=== PATIENT | male | born 1935 | race Caucasian/White ===

== ENCOUNTER 2016-11-18 17:25 | Inpatient (IN) | payer MEDICARE, OTHER ==
[2016-11-18] VITALS (10 sets, daily range): BP systolic 116–137; RESP 24–32; TEMP 97–97.1; BMI 31.9
[~2016-11-18] VITALS: Ht 175.3 cm; Wt 99.9 kg
[2016-11-18] MEDS ORDERED: CEFTRIAXONE 1 GM VIAL ONE (20:16)
[2016-11-18] MEDS ORDERED: SODIUM CHLORIDE 0.9% 100 ML IV ONE (20:16)
[2016-11-18] MEDS ORDERED: ALBUMIN HUMAN 25GM (25%) 100 ML IV PRN (20:25)
[2016-11-18] MEDS ORDERED: SODIUM CHLORIDE 0.9% 1,000 ML IV SCH (20:25)
[2016-11-18] MEDS ORDERED: GLUCAGON 1 MG VIAL IM PRN (20:25)
[2016-11-18] MEDS ORDERED: SODIUM CHLORIDE 0.9% 1,000 ML IV PRN (20:25)
[2016-11-18] MEDS ORDERED: ONDANSETRON 4 MG VIAL IV PRN (20:25)
[2016-11-18] MEDS ORDERED: SODIUM BICARB 8.4% 150 ML in DEXTROSE 5% 1,000 ML IV SCH (21:05)
[2016-11-18] MEDS ORDERED: VANCOMYCIN 1,500 MG in SODIUM CHLORIDE 0.9% 250 ML IV ONE (21:10)
[2016-11-18] MEDS ORDERED: ACETAMINOPHEN 325 MG TAB PO PRN (21:10)
[2016-11-18] MEDS ORDERED: ONDANSETRON 4 MG VIAL IV PUSH PRN (21:15)
[2016-11-19] VITALS (53 sets, daily range): BP systolic 66–139; RESP 16–44; TEMP 97.2–98.3
[2016-11-19] MEDS: CEFTRIAXONE 1 GM in SODIUM CHLORIDE 0.9% 50 ML IV SCH (07:29)
[2016-11-19] MEDS ORDERED: ONDANSETRON 4 MG VIAL IV PRN (09:00)
[2016-11-19] MEDS ORDERED: SODIUM CHLORIDE 0.9% 1,000 ML IV PRN (09:00)
[2016-11-19] MEDS ORDERED: SODIUM CHLORIDE 0.9% 1,000 ML IV SCH (09:00)
[2016-11-19] MEDS ORDERED: ALBUMIN HUMAN 25GM (25%) 100 ML IV PRN (09:00)
[2016-11-19] MEDS: BACITRACIN OINT TOPICAL SCH (21:08)
[2016-11-19] MEDS ORDERED: SODIUM CHLORIDE 0.9% 500 ML IV ONE ×2 (22:35→23:25)
[2016-11-19] MEDS: NOREPINEPHRINE 16 MG in DEXTROSE 5% 234 ML IV SCH (23:35)
[2016-11-20] VITALS (106 sets, daily range): BP systolic 64–138; RESP 0–39; TEMP 98.8–101.5
[2016-11-20] MEDS ORDERED: DEXTROSE 50% 50 ML ONE (01:21)
[2016-11-20] MEDS: DEXTROSE 50% SYRINGE 50 ML IV PRN (01:25)
[2016-11-20] MEDS ORDERED: ALBUMIN HUMAN 25GM (25%) 100 ML IV ONE ×3 (01:55→19:35)
[2016-11-20] MEDS ORDERED: DEXTROSE 50% SYRINGE 50 ML IV STA (07:02)
[2016-11-20] MEDS ORDERED: DEXTROSE 50% SYRINGE 50 ML IV PRN (07:05)
[2016-11-20] MEDS ORDERED: MISSING DOSE XX ONE ×3 (07:50→23:50)
[2016-11-20] MEDS: SODIUM BICARB 8.4% 100 ML in DEXTROSE 5% 1,000 ML IV SCH (08:22)
[2016-11-20] MEDS: CEFTRIAXONE 1 GM in SODIUM CHLORIDE 0.9% 50 ML IV SCH (08:27)
[2016-11-20] MEDS ORDERED: VANCOMYCIN 1,000 MG in SODIUM CHLORIDE 0.9% 250 ML IV ONE (11:00)
[2016-11-20] MEDS: BACITRACIN OINT TOPICAL SCH ×2 (11:05→23:55)
[2016-11-20] MEDS: PIPERACIL/TAZO 2.25GM/50ML 50 ML IV SCH ×2 (11:41→20:49)
[2016-11-20] MEDS ORDERED: AMIODARONE 150 MG in DEXTROSE 5% 100 ML IV ONE (19:55)
[2016-11-20] MEDS ORDERED: AMIODARONE 450 MG in DEXTROSE 5% AVIVA 250 ML IV SCH (19:55)
[2016-11-20] MEDS ORDERED: ALBUMIN HUMAN 25GM (25%) 100 ML IV PRN (20:10)
[2016-11-20] MEDS: VASOPRESSIN 40 UNITS in SODIUM CHLORIDE 0.9% 38 ML IV SCH (21:00)
[2016-11-20] MEDS ORDERED: FAMOTIDINE 20 MG/50 ML 50 ML IV SCH (21:00)
[2016-11-20] MEDS: FAMOTIDINE 20 MG INJ IV SCH (23:54)
[2016-11-21] VITALS (117 sets, daily range): BP systolic 53–143; RESP 0–38; TEMP 99.8–100.5
[2016-11-21] MEDS: SODIUM BICARB 8.4% 100 ML in DEXTROSE 5% 1,000 ML IV SCH ×2 (01:06→14:24)
[2016-11-21] MEDS: NOREPINEPHRINE 16 MG in DEXTROSE 5% 234 ML IV SCH ×2 (01:06→19:17)
[2016-11-21] MEDS ORDERED: NEB-BROVANA 15 MCG/2 ML INH ONE ×2 (03:06→03:15)
[2016-11-21] MEDS ORDERED: DUONEB INH ONE (03:15)
[2016-11-21] MEDS: DUONEB INH SCH ×6 (03:24→22:45)
[2016-11-21] MEDS: NEB-BROVANA 15 MCG/2 ML INH SCH ×2 (06:42→18:14)
[2016-11-21] MEDS: PIPERACIL/TAZO 2.25GM/50ML 50 ML IV SCH ×2 (08:09→23:13)
[2016-11-21] MEDS: FAMOTIDINE 20 MG INJ IV SCH ×2 (08:19→23:14)
[2016-11-21] MEDS: BACITRACIN OINT TOPICAL SCH ×2 (08:20→21:00)
[2016-11-21] MEDS ORDERED: VANCOMYCIN 500 MG in SODIUM CHLORIDE 0.9% 100 ML IV SCH (09:00)
[2016-11-21] MEDS ORDERED: MISSING DOSE XX ONE ×3 (12:05→18:45)
[2016-11-21] MEDS: VASOPRESSIN 40 UNITS in SODIUM CHLORIDE 0.9% 38 ML IV SCH (12:28)
[2016-11-21] MEDS ORDERED: ALBUMIN HUMAN 25GM (25%) 100 ML IV ONE ×2 (17:40)
[2016-11-21] MEDS ORDERED: SODIUM CHLORIDE 0.9% 1,000 ML IV ONE ×2 (18:15)
[2016-11-21] MEDS: NEB-NACL 3% 4 ML NEBU INH SCH ×2 (18:53→22:44)
[2016-11-21] MEDS: NEB-BUDESONIDE 0.5 MG INH SCH (18:53)
[2016-11-21] MEDS ORDERED: hePARIN 20,000 UNITS in DEXTROSE 5% 500 ML IV SCH (19:50)
[2016-11-21] MEDS ORDERED: CRASH CART/CODE RESPONSE CHARGE XX ONE (21:20)
[2016-11-22] VITALS (75 sets, daily range): BP systolic 0–134; RESP 0–32; TEMP 97–102; Ht 175.3 cm; Wt 99.9 kg
[2016-11-22] MEDS: DUONEB INH SCH ×4 (02:58→14:36)
[2016-11-22] MEDS ORDERED: MISSING DOSE XX ONE ×2 (03:00→12:55)
[2016-11-22] MEDS ORDERED: hePARIN 1,000 UNITS/ML (PORCINE) 10 ML DIALYSIS PRN (06:15)
[2016-11-22] MEDS: NEB-BROVANA 15 MCG/2 ML INH SCH (06:38)
[2016-11-22] MEDS: NEB-BUDESONIDE 0.5 MG INH SCH (06:38)
[2016-11-22] MEDS: NEB-NACL 3% 4 ML NEBU INH SCH ×2 (06:39→11:00)
[2016-11-22] MEDS ORDERED: DOBUTamine PREMIX 250 ML IV PRN (07:45)
[2016-11-22] MEDS ORDERED: ALBUMIN HUMAN 25GM (25%) 100 ML IV ONE ×2 (07:45)
[2016-11-22] MEDS ORDERED: SOD BICARB 8.4% SYR 50 ML ONE ×3 (08:00→09:11)
[2016-11-22] MEDS ORDERED: PHARMACY TO DOSE TOBRAMYCIN IV SCH (08:00)
[2016-11-22] MEDS ORDERED: MICAFUNGIN 100 MG in SODIUM CHLORIDE 0.9% 100 ML IV SCH (09:00)
[2016-11-22] MEDS: PIPERACIL/TAZO 2.25GM/50ML 50 ML IV SCH (09:00)
[2016-11-22] MEDS: BACITRACIN OINT TOPICAL SCH (09:00)
[2016-11-22] MEDS: SOLU-CORTEF 100 MG/2 ML IV SCH ×2 (09:10→17:21)
[2016-11-22] MEDS ORDERED: SODIUM CHLORIDE 0.9% 1,000 ML IV ONE (09:10)
[2016-11-22] MEDS ORDERED: SOD BICARB 8.4% SYR 50 ML IV ONE (09:10)
[2016-11-22] MEDS: FAMOTIDINE 20 MG INJ IV SCH (09:54)
[2016-11-22] MEDS ORDERED: SODIUM CHLORIDE 0.9% IV ONE (10:00)
[2016-11-22] MEDS ORDERED: TOBRAMYCIN IV ONE (10:00)
[2016-11-22] MEDS ORDERED: SODIUM BICARB 8.4% 150 ML in DEXTROSE 5% 1,000 ML IV SCH (10:20)
[2016-11-22] MEDS: DEXTROSE 50% SYRINGE 50 ML IV PRN (10:44)
[2016-11-22] MEDS ORDERED: VANCOMYCIN 500 MG in SODIUM CHLORIDE 0.9% 100 ML IV SCH (12:00)
[2016-11-22] MEDS ORDERED: PHARMACY TO DOSE VANCOMYCIN IV SCH (15:00)
[2016-11-22] MEDS ORDERED: PHARMACY TO DOSE ZOSYN IV SCH (15:00)
[2016-11-22] MEDS ORDERED: VANCOMYCIN 500 MG in SODIUM CHLORIDE 0.9% 100 ML IV ONE (15:00)
[2016-11-22] MEDS: VASOPRESSIN 40 UNITS in SODIUM CHLORIDE 0.9% 38 ML IV SCH (17:17)
[2016-11-22] MEDS: NOREPINEPHRINE 16 MG in DEXTROSE 5% 234 ML IV SCH (17:17)
[2016-11-22] MEDS ORDERED: PIPERACIL/TAZO 3.375GM/50ML 50 ML IV SCH (18:00)
[2016-11-22] MEDS ORDERED: CRASH CART/CODE RESPONSE CHARGE XX ONE (18:40)
== END 2016-11-22 17:52 | disposition expired | DRG 682 ==
LOC: ENRESERVDT → ENRESERVTM → ER 17:25 → EMR 19:49 → ICU 20:28
PROVIDERS: ADMIT Internal Medicine Nephrology; ATTEND Internal Medicine Nephrology
PROC: 06HM33Z Insertion of Infusion Device into Right Femoral Vein, Percutaneous Approach (ICD-10-PCS; 2016-11-18)
PROC: B54BZZA Ultrasonography of Right Lower Extremity Veins, Guidance (ICD-10-PCS; 2016-11-18)
PROC: 5A1D60Z (ICD-10-PCS; 2016-11-18)
PROC: 03HY32Z Insertion of Monitoring Device into Upper Artery, Percutaneous Approach (ICD-10-PCS; principal; 2016-11-21)
PROC: 4A133B1 Monitoring of Arterial Pressure, Peripheral, Percutaneous Approach (ICD-10-PCS; 2016-11-21)
PROC: 4A133J1 Monitoring of Arterial Pulse, Peripheral, Percutaneous Approach (ICD-10-PCS; 2016-11-21)
PROC: 0BH17EZ Insertion of Endotracheal Airway into Trachea, Via Natural or Artificial Opening (ICD-10-PCS; 2016-11-21)
PROC: 5A1935Z Respiratory Ventilation, Less than 24 Consecutive Hours (ICD-10-PCS; 2016-11-21)
PROC: 5A12012 Performance of Cardiac Output, Single, Manual (ICD-10-PCS; 2016-11-21)
CPT/HCPCS: 36600; 36800; 51702; 70450; 71010; 71250; 74000; 74176; 80051; 80053; 80069; 80202; 82140; 82248; 82330; 82550; 82803; 82947; 83605; 83735; 83880; 84100; 84439; 84443; 84484; 85007; 85025; 85027; 85610; 85730; 86704; 86706; 87040; 87071; 87077; 87081; 87088; 87186; 87340; 87804; 93005; 93306; 94002; 94003; 94640; 94660; 94799; 96361; 96365; 99291; 99292